=== PATIENT | female | born 1970 | race Caucasian/White ===

== ENCOUNTER 2017-03-14 07:00 | Inpatient (IN) | payer OTHER ==
[2017-03-15 05:13] LABS: HCT 37.3 % (37.0-47.0); HGB 12.3 g/dl (12.5-16.0); MCH 31.7 pg (25.0-31.0); MCV 96.1 fL (78.0-100.0); MPV 9.5 fL (6.0-9.5); RBC 3.88 M/uL (4.20-5.40); RDW 12.4 % (11.5-14.0); WBC 6.1 K/uL (4.0-10.5)
[2017-03-15 05:32] LABS: CREATININE 0.7 mg/dL (0.5-1.0); POTASSIUM 3.9 mmol/L (3.5-5.1)
[2017-03-16 05:55] LABS: HCT 33.3 % (37.0-47.0); HGB 11.2 g/dl (12.5-16.0); MCH 32.3 pg (25.0-31.0); MCHC 33.6 g/dL (32.0-36.0); MPV 9.6 fL (6.0-9.5); RBC 3.47 M/uL (4.20-5.40); RDW 12.1 % (11.5-14.0)
[2017-03-17 04:41] LABS: HCT 32.8 % (37.0-47.0); MCH 32.1 pg (25.0-31.0); MCHC 33.5 g/dL (32.0-36.0); MCV 95.6 fL (78.0-100.0); RBC 3.43 M/uL (4.20-5.40); RDW 11.9 % (11.5-14.0); WBC 5.3 K/uL (4.0-10.5)
[2017-03-17 05:04] LABS: CREATININE 0.6 mg/dL (0.5-1.0); POTASSIUM 3.3 mmol/L (3.5-5.1)
== END 2017-03-17 15:49 | DRG 470 ==
LOC: FMS 07:00
PROVIDERS: Internal Medicine; ADMIT Orthopaedic Surgery
PROC: 8E0YXBZ Computer Assisted Procedure of Lower Extremity (ICD-10-PCS; 2017-03-14)
PROC: 0SRD0J9 Replacement of Left Knee Joint with Synthetic Substitute, Cemented, Open Approach (ICD-10-PCS; principal; 2017-03-14 07:00)
DX: M17.0 Bilateral primary osteoarthritis of knee (principal); F32.9 Major depressive disorder, single episode, unspecified; M19.90 Unspecified osteoarthritis, unspecified site; Z72.89 Other problems related to lifestyle; F41.9 Anxiety disorder, unspecified; J45.909 Unspecified asthma, uncomplicated; F17.210 Nicotine dependence, cigarettes, uncomplicated
CPT/HCPCS: 36415; 73560; 80048; 84703; 86850; 86900; 86901; 88305; 88311; 94010; 94640; 94760; 94762; 97110; 97116; 97162; 97166; 97530; 97530-GP; 97535; C1713; C1776; J0131; J0697; J1170; J1885; J2270; J2405; J2704; J2710; J2795; J3010

== ENCOUNTER 2017-03-17 15:49 | Inpatient (IN) | payer OTHER ==
[2017-03-19 07:20] LABS: CREATININE 0.5 mg/dL (0.5-1.0); POTASSIUM 4.1 mmol/L (3.5-5.1)
[2017-03-25] MEDS ORDERED: WELLBUTRIN XL150 MG PO (14:14)
[2017-03-25] MEDS ORDERED: VOLTAREN **OUT75 MG PO (14:14)
[2017-03-25] MEDS ORDERED: BUSPAR5 MG PO (14:14)
[2017-03-25] MEDS ORDERED: ACETAMINOPHEN325 MG PO (14:15)
[2017-03-25] MEDS ORDERED: VENTOLIN HFA IN18 GM INH (14:15)
[2017-03-25] MEDS ORDERED: SUPER B COMPLE150 MG PO (14:16)
[2017-03-25] MEDS ORDERED: VITAMIN D1000 UNI1 PO (14:16)
--- NOTE | 2017-03-28 11:45 | NUR ---
DISCHARGE NOTE- MRS. REGALADO WAS DISCHARGED HOME WITH [facility] FOR NURSING ASSESSMENT, PT/OT, MENTAL HEALTH NURSE AND ROLLING WALKER. JOHN SUPPLIED PATIENT WITH ROLLING WALKER. HER LAST DOSE OF XARELTO WAS 03/25/17.
== END 2017-03-25 12:45 | disposition home health service (06) | DRG 561 ==
LOC: FSNU 15:49
PROVIDERS: ADMIT Orthopaedic Surgery
DX: Z47.1 Aftercare following joint replacement surgery (principal); F32.9 Major depressive disorder, single episode, unspecified; Z96.652 Presence of left artificial knee joint; F41.9 Anxiety disorder, unspecified; Z72.89 Other problems related to lifestyle
CPT/HCPCS: 36415; 80048; 97110; 97116; 97161; 97166; 97530; 97530-GP; 97535; 97537